=== PATIENT | male | born 2000 | race American Indian/Alaskan Native ===

== ENCOUNTER 2022-04-10 10:32 | Outpatient (CLI) | payer OTHER ==
--- NOTE | 2022-04-10 11:34 | XRay Report ---
PELVIS WITH BILATERAL HIPS 2 VIEWS EACH INDICATION / CLINICAL INFORMATION: BILATERAL HIP PAIN, NEEDA HIP REPLACEMENT CANT STAND. COMPARISON: None available. 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 There is remodeling of the right acetabulum. Advanced superimposed DJD is noted. Mild chronic appearing deformity is noted at the left femoral head without significant superimposed degenerative change. SOFT TISSUES: No significant abnormality. ADDITIONAL FINDINGS: None. 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 Signer Name: Galdino Huynh MD Signed: 04/10/2022 11:30 AM Workstation Name: [id number]
== END 2022-04-10 10:33 | disposition home or self-care (01) ==
LOC: XRAY 10:32
PROVIDERS: ATTEND Internal Medicine
DX: M16.0 Bilateral primary osteoarthritis of hip (principal)
CPT/HCPCS: 73521